=== PATIENT | female | born 1995 | race Asian ===

== ENCOUNTER 2023-07-27 10:21 | Inpatient (IN) | payer BC ==
[~2023-07-27 10:21] MED LIST: Bupivacaine 0.25% HCL 30 ML VIAL ONE; ePHEDrine 50 MG/ML VIAL ONE
[2023-07-27] MEDS ORDERED: Penicillin G Potassium 5 MILL.UNITS VIAL ONE (11:56)
[2023-07-27 12:09] VITALS: BMI 31.7
[2023-07-27] MEDS ORDERED: Oxytocin 30 units/NS 500 ML 500 ML ONE (12:18)
[2023-07-27] MEDS ORDERED: Ondansetron PF 4 MG/2 ML Vial IVP PRN ×3 (13:04→23:24)
[2023-07-27] MEDS ORDERED: Ibuprofen 800 MG TAB PO PRN (13:04)
[2023-07-27] MEDS ORDERED: Butorphanol Tartrate 1 MG/ML VIAL SLOW IVP PRN (13:04)
[2023-07-27] MEDS ORDERED: Lidocaine 1% (PF) 30 ML VIAL SC PRN (13:04)
[2023-07-27] MEDS ORDERED: Promethazine HCl 25 MG/ML VIAL IM PRN ×2 (13:04→15:33)
[2023-07-27] MEDS ORDERED: HYDROcodone/Acetaminophen 5/325 mg Tablet PO PRN ×3 (13:04→23:24)
[2023-07-27] MEDS ORDERED: hydrALAZINE 20 MG/ML VIAL SLOW IVP PRN ×2 (13:04→23:24)
[2023-07-27] MEDS ORDERED: Oxytocin 30 units/NS 500 ML 500 ML IV SCH ×4 (13:15→23:24)
[2023-07-27] MEDS ORDERED: Lactated Ringer's 1,000 ML IV SCH (13:15)
[2023-07-27] MEDS ORDERED: Penicillin G Potassium 5 MILL.UNITS in Sodium Chloride 0.9% 100 ML IVPB SCH (13:15)
[2023-07-27 13:29] LABS: Hematocrit 37.2 % (34.9-44.5); Hemoglobin 12.8 g/dL (12.0-15.5); Mean Corpuscular HGB CONC 34.4 g/dL (32.0-36.0); Mean Corpuscular Hemoglobin 29.4 pg (27.0-33.0); Mean Corpuscular Volume 85.5 fl (81.6-98.3); Mean Platelet Volume 12.8 fl (7.4-10.4); Platelet Count 205 10x3/uL (150-450); RBC Distribution Width 12.2 % (11.5-14.5); Red Blood Cell (RBC) Count 4.35 10x6/uL (3.90-5.03)
[2023-07-27 13:53] LABS: HBSAg Index 0.11 S/CO (0-0.99); Hep B Surf Ag - L&D Non-Reactive S/CO (NonReactive)
[2023-07-27 13:54] LABS: Syphilis Antibody Nonreactive (Nonreactive); Syphilis Antibody Index 0.03 S/CO (<1.00 Non-Reactive)
[2023-07-27] MEDS ORDERED: fentaNYL/Ropivacaine Epidural 100 ML ONE (14:55)
[2023-07-27] MEDS ORDERED: diphenhydrAMINE 50 MG/ML VIAL IVP PRN (15:33)
[2023-07-27] MEDS ORDERED: ePHEDrine Sulfate 50 MG/10 ML VIAL SLOW IVP PRN (15:33)
[2023-07-27] MEDS ORDERED: Moisturizing Cream (Eucerin) 113 GM JAR TOP PRN (15:33)
[2023-07-27] MEDS ORDERED: Naloxone HCl 0.4 mg/ml Vial IVP PRN ×2 (15:33)
[2023-07-27] MEDS ORDERED: Acetaminophen 325 MG TAB PO PRN (15:33)
[2023-07-27] MEDS ORDERED: Lactated Ringer's 500 ML IV PRN (15:33)
[2023-07-27] MEDS ORDERED: fentaNYL 2 mcg/Ropivacaine 0.2% Epidural 100 ML CADD EPIDURAL SCH (15:45)
[2023-07-27] MEDS ORDERED: Communication Order-Pharmacy FS SCH (15:45)
[2023-07-27] MEDS: Penicillin G 2.5 MILL.units 2.5 MILL.UNITS in Premix 1 BAG IVPB SCH (17:39)
[2023-07-27] MEDS ORDERED: Preparation H Ointment 28 GM TUBE PR PRN (23:24)
[2023-07-27] MEDS ORDERED: Milk Of Magnesia 30 ML UDCUP PO PRN (23:24)
[2023-07-27] MEDS ORDERED: Lanolin Ointment 7 GM TUBE TOP PRN (23:24)
[2023-07-27] MEDS ORDERED: diphenhydrAMINE 25 MG CAP PO PRN (23:24)
[2023-07-27] MEDS ORDERED: Benzocaine-Menthol 82.5 ML CAN TOP PRN (23:24)
[2023-07-27] MEDS ORDERED: Boostrix 0.5 ML (Tdap) VIAL (>/=7 yrs of age) IM ONE (23:24)
[2023-07-27] MEDS ORDERED: Bisacodyl 10 MG SUPP PR PRN (23:24)
[2023-07-27] MEDS: Ibuprofen 800 MG TAB PO SCH (23:56)
[2023-07-28] MEDS: Docusate 100 MG CAP PO SCH ×2 (07:52→22:00)
[2023-07-28] MEDS: Prenatal Vitamin 1 TAB PO SCH (07:52)
[2023-07-28] MEDS: Ibuprofen 800 MG TAB PO SCH ×2 (07:52→16:19)
[2023-07-28] MEDS: Ferrous Sulfate 325 MG TAB PO SCH (09:37)
[2023-07-28] MEDS: Penicillin G 2.5 MILL.units 2.5 MILL.UNITS in Premix 1 BAG IVPB SCH (09:38)
[2023-07-28] MEDS: HYDROcodone/Acetaminophen 5/325 mg Tablet PO PRN (14:26)
[2023-07-29] MEDS: Ibuprofen 800 MG TAB PO SCH ×3 (00:03→16:28)
[2023-07-29] MEDS: Ferrous Sulfate 325 MG TAB PO SCH (07:23)
[2023-07-29] MEDS: Docusate 100 MG CAP PO SCH ×2 (08:12→21:40)
[2023-07-29] MEDS: Prenatal Vitamin 1 TAB PO SCH (08:12)
[2023-07-29 11:53] LABS: Hematocrit 33.7 % (34.9-44.5); Hemoglobin 11.8 g/dL (12.0-15.5)
[2023-07-29] MEDS: HYDROcodone/Acetaminophen 5/325 mg Tablet PO PRN (12:18)
[2023-07-30] MEDS: Ibuprofen 800 MG TAB PO SCH ×2 (00:25→07:59)
[2023-07-30 07:46] VITALS: BP 135/85; TEMP 98.7
[2023-07-30] MEDS: Ferrous Sulfate 325 MG TAB PO SCH (07:49)
[2023-07-30] MEDS: Docusate 100 MG CAP PO SCH (07:59)
[2023-07-30] MEDS: Prenatal Vitamin 1 TAB PO SCH (07:59)
== END 2023-07-30 13:05 | disposition home or self-care (01) | DRG 807 ==
LOC: CSHLD/OP 10:21 → CSHLD 13:40 → CSHPP 07-28 05:28
PROVIDERS: ADMIT Obstetrics & Gynecology; ATTEND Obstetrics & Gynecology
PROC: 10E0XZZ Delivery of Products of Conception, External Approach (ICD-10-PCS; principal; 2023-07-27)
PROC: 0KQM0ZZ Repair Perineum Muscle, Open Approach (ICD-10-PCS; 2023-07-27)
PROC: 10907ZC Drainage of Amniotic Fluid, Therapeutic from Products of Conception, Via Natural or Artificial Opening (ICD-10-PCS; 2023-07-27)
DX: O42.02 Full-term premature rupture of membranes, onset of labor within 24 hours of rupture (principal); Z37.0 Single live birth; Z3A.39 39 weeks gestation of pregnancy; O24.429 Gestational diabetes mellitus in childbirth, unspecified control; O99.824 Streptococcus B carrier state complicating childbirth; Z83.3 Family history of diabetes mellitus; O70.1 Second degree perineal laceration during delivery
CPT/HCPCS: 36415; 51702; 85014; 85018; 85027; 86780; 86850; 86900; 86901; 87340; 99285; J2540; J2590; J3490; S0020

== ENCOUNTER 2024-04-30 11:54 | Emergency (ER) | payer BC, MEDICAID ==
[2024-04-30 13:26] LABS: #Basophils 0.03 10x3/uL (0.0-0.2); #Monocytes 0.61 10x3/uL (0.0-1.1); #Neutrophils 12.11 10x3/uL (1.5-8.4); %Basophils 0.2 % (0.0-2.0); %Monocytes 4.1 % (0.0-10.0); %Neutrophils 82.3 % (40.0-75.0); Hematocrit 39.5 % (34.9-44.5); Hemoglobin 12.9 g/dL (12.0-15.5); Mean Corpuscular HGB CONC 32.7 g/dL (32.0-36.0); Mean Corpuscular Hemoglobin 26.7 pg (27.0-33.0); Mean Corpuscular Volume 81.8 fL (81.6-98.3); Mean Platelet Volume 10.3 fL (7.4-10.4); Platelet Count 400 10x3/uL (150-450); Red Blood Cell (RBC) Count 4.83 10x6/uL (3.90-5.03); White Blood Cell (WBC) Count 14.7 10x3/uL (3.5-10.5)
[2024-04-30 13:51] LABS: BHCG - Serum Negative (NEGATIVE); Pregs Control Background? CLEAR/WHITE (CLR/WHITE); Pregs Control Bar Appear? YES (CONTROL BAR)
[2024-04-30 13:55] LABS: ALT (SGPT) 36 U/L (8-55); AST (SGOT) 27 U/L (5-34); Albumin 3.7 g/dL (3.5-5.0); Alkaline Phosphatase 96 U/L (40-110); Anion Gap 13 mmol/L (10-20); BUN (Urea Nitrogen) 12 mg/dL (7.0-18.7); Bilirubin, Total 0.2 mg/dL (0.2-1.2); Calc. Creatinine Clearance 0 mL/min (70-130); Calcium 9.6 mg/dL (7.8-10.44); Carbon Dioxide 25 mmol/L (22-29); Chloride 103 mmol/L (98-107); Estimated GFR 110; Globulin 4.2 g/dL (2.4-3.5); Glucose 95 mg/dL (70-105); Protein, Total 7.9 g/dL (6.0-8.3); Sodium 137 mmol/L (136-145)
[2024-04-30 14:15] LABS: Bilirubin Neg (Negative); Blood, Urine 250 (Negative); Glucose, Urine (Dipstick) Normal (Negative); Ketone, Urine Negative (Negative); Leukocyte 25 (Negative); Nitrite Negative (Negative); Protein, Urine (Dipstick) 15 mg/dl (Neg-Trace); Urobilinogen Normal mg/dL (Less than 2)
[2024-04-30 14:32] LABS: CAUTI Indications for Culture Pelvic or flank pain; Clarity Slightly Cloudy (Clear); RBC/HPF Greater than 50 HPF (0-3); Squamous Epithelial 0-3 HPF (0-3)
[2024-04-30 14:33] LABS: Bacteria/HPF Rare-Few HPF (None Seen)
[2024-04-30 14:34] LABS: Urine Culture Reflex No No
== END 2024-04-30 15:25 | disposition home or self-care (01) ==
LOC: CSHERS 11:54
DX: N93.9 Abnormal uterine and vaginal bleeding, unspecified (principal)
CPT/HCPCS: 80053; 81001; 84703; 85025; 99284